=== PATIENT | female | born 2005 | race Caucasian/White ===

== ENCOUNTER 2024-05-30 11:29 | Outpatient (REF) | payer MEDICAID, SELFPAY ==
[2024-05-30 14:15] LABS: MANUAL DIFF FLAG NO
[2024-05-30 14:20] LABS: Eosinophils Absolute Auto 0.1 X10*3/uL (0.0-0.4); Eosinophils Percent Auto 1.2 % (0-4); Hematocrit 36.6 % (37.0-47.0); Hemoglobin 11.9 g/dl (12.0-16.0); Imm Gran Abs Auto 0.01 X10*3/uL (0.00-0.03); Imm Gran Pct Auto 0.2 % (0.0-0.4); Lymphocytes Absolute Auto 1.4 X10*3/uL (1.2-4.9); Mean Corpuscular HGB Conc 32.5 g/dl (31.0-35.0); Mean Corpuscular Hemoglobin 29.2 pg (27.0-33.0); Mean Corpuscular Volume 89.7 fL (80.0-98.0); Monocytes Absolute Auto 0.4 X10*3/uL (0.1-1.2); Monocytes Percent Auto 10.4 % (2-11); Neutrophils Absolute Auto 2.2 x10*3/uL (2.0-8.3); Neutrophils Percent Auto 52.2 % (45-73); Platelet Count 339 X10*3/uL (160-400); Red Blood Count 4.08 X10*6/uL (4.20-5.50); White Blood Count 4.1 X10*3/uL (4.8-10.8)
[2024-05-30 14:51] LABS: TSH reflex Free T4 0.45 uIU/mL (0.32-4.0)
[2024-05-31 03:58] LABS: HIV AB/AG Nonreactive (Nonreactive); HIV Num 1 0.05 S/CO (0.00-0.99); ~HepC Num1 2.59 S/CO (0.00-0.79); ~Hepatitis C Antibody Reactive (Nonreactive)
[2024-05-31 05:37] LABS: CT PCR NOT DETECTED (Not Detect.); NG PCR NOT DETECTED (Not Detect.)
[2024-06-03 15:38] LABS: HCV Log PCR <1.18 NOT DETECTED Log IU/mL (NOT DETECTED); HepC Viral Load <15 NOT DETECTED IU/mL (NOT DETECTED)
== END 2024-05-30 11:30 | disposition home or self-care (01) ==
LOC: HO.CHCLDS 11:29
PROVIDERS: Visit Provider Pediatrics
DX: F43.23 Adjustment disorder with mixed anxiety and depressed mood (principal); N92.4 Excessive bleeding in the premenopausal period; J02.9 Acute pharyngitis, unspecified
CPT/HCPCS: 36415; 84443; 85025; 86803; 87070; 87389; 87491; 87522; 87591

== ENCOUNTER 2024-06-13 12:40 | Outpatient (REF) | payer MEDICAID, SELFPAY ==
[2024-06-13 14:34] LABS: Monotest Negative (Negative)
[2024-06-13 14:48] LABS: Influenza A PCR NEGATIVE (Negative); Influenza B PCR NEGATIVE (Negative); Resp Syncy Virus RNA Qual PCR NEGATIVE (Negative); SARS COV2 PCR INHOUSE NEGATIVE (Negative)
== END 2024-06-13 12:41 | disposition home or self-care (01) ==
LOC: HO.CHCLNP 12:40
PROVIDERS: Visit Provider Pediatrics
DX: J06.9 Acute upper respiratory infection, unspecified (principal); J35.1 Hypertrophy of tonsils; G93.31 Postviral fatigue syndrome
CPT/HCPCS: 0241U; 36415; 86308; 87070; 87147